=== PATIENT | male | born 1965 | race Caucasian/White ===

== ENCOUNTER 2019-12-03 07:24 | Emergency (ER) | payer MEDICAID ==
[~2019-12-03] VITALS: Ht 175.3 cm; Wt 93.2 kg
[2019-12-03 07:28] VITALS: Ht 175.3 cm; Wt 93.2 kg
[2019-12-03] MEDS ORDERED: HYDROCODON-ACE1 EAC2 PO (09:16)
[2019-12-03 09:31] VITALS: BP 148/96
== END 2019-12-03 09:31 | disposition home or self-care (01) ==
LOC: D.ER 07:24
DX: S43.109A Unspecified dislocation of unspecified acromioclavicular joint, initial encounter (principal); S50.312A Abrasion of left elbow, initial encounter; S52.121A Displaced fracture of head of right radius, initial encounter for closed fracture; V19.9XXA Pedal cyclist (driver) (passenger) injured in unspecified traffic accident, initial encounter; M25.522 Pain in left elbow; M25.532 Pain in left wrist

== ENCOUNTER → 2020-01-09 12:50 | Outpatient (CLI) | payer MEDICAID ==
[2019-12-03 07:28] VITALS: BMI 30.3
[~2020-01-09 12:50] MED LIST: HYDROCODON-ACE1 EAC2 PO
== END | disposition home or self-care (01) ==
LOC: D.RAD 08:30 → D.MRI 09:30 → D.RAD 12:50
PROVIDERS: ATTEND Orthopaedic Surgery
DX: M23.41 Loose body in knee, right knee (principal); M25.311 Other instability, right shoulder

== ENCOUNTER 2020-01-23 18:06 | Observation (INO) | payer MEDICAID ==
[~2020-01-23] VITALS: Ht 175.3 cm; Wt 95.5 kg
--- NOTE | 2020-01-23 18:28 | NUR ---
TRAUMA BAND [id number]
[2020-01-23 18:51] LABS: BASOPHILS 0.6 % (0-2); EOSINOPHILS 2.2 % (0-7); HEMATOCRIT 39.9 % (42.0-54.0); HEMOGLOBIN 12.9 g/dL (13.5-17.5); IMMATURE GRANULOCYTES 0.2 % (0-5); MCH 28.9 pg (26.0-34.0); MCHC 32.3 g/dL (31.0-37.0); MCV 89.5 fL (80.0-100.0); MEAN PLATELET VOLUME 10.2 fL (7.4-10.4); MONOCYTES 9.5 % (2-11); NEUTROPHILS 57.5 % (40-80); PLATELET COUNT 254 10x3/uL (130-400); RBC 4.46 10x6/uL (4.20-6.10); RDW 13.4 % (11.5-14.5); WBC 9.3 10x3/uL (4.8-10.8)
[2020-01-23 19:00] LABS: ANION GAP 11.8 mmol/L (8-16); CALCIUM 8.7 mg/dL (8.5-10.1); CARBON DIOXIDE 24.6 mmol/L (21.0-32.0); CREATININE - SERUM 1.2 mg/dL (0.6-1.3); POTASSIUM - SERUM 3.4 mmol/L (3.5-5.1)
[2020-01-23 19:02] LABS: INR 1.08 (0.85-1.17); PROTIME 13.9 SECONDS (11.6-15.0)
[2020-01-23 19:07] LABS: ALBUMIN 4.2 g/dL (3.4-5.0); BILIRUBIN - TOTAL 1.1 mg/dL (0.2-1.3); PROTEIN - SERUM 7.6 g/dL (6.4-8.2)
--- NOTE | 2020-01-23 20:00 | NUR ---
SURGERY AND ANESTHESIA CONSENTS COMPLETE. NO DISTRESS NOTED.
[2020-01-23 21:26] VITALS: BP 102/53
[2020-01-23 22:30] VITALS: BP 145/91; Ht 175.3 cm; Wt 95.5 kg
--- NOTE | 2020-01-24 01:35 | NUR ---
RESEVED FROM RECOVERY ALERT AND ORENTED X4 ABLE TO VOICE NEEDS AND WANTSTO STAFF. EAT AND DRINKING NO NEEDS AT THIS TIME .
[2020-01-24 04:52] LABS: HEMATOCRIT 37.4 % (42.0-54.0); HEMOGLOBIN 11.9 g/dL (13.5-17.5)
[2020-01-24 06:27] VITALS: BP 134/81
[2020-01-24 08:00] VITALS: BP 113/71
--- NOTE | 2020-01-24 09:26 | NUR ---
CALLED [facility] AND EXPLAINED PATIENT STATES HE IS LEAVING AND THAT HE ALREADY TOOK HIS IV OUT AND IS REFUSING HIS ANTIBIOTICS. NEW ORDERS RECIEVED AND CARRIED OUT.
[2020-01-24] MEDS ORDERED: HYDROCODON-ACE1 EA10 PO (09:34)
[2020-01-24] MEDS ORDERED: BACTRIM 400-801 TAB PO (09:37)
--- NOTE | 2020-01-24 09:50 | NUR ---
PATIENT RECIEVED DC INSTRUCTIONS. VERBALIZED UNDERSTANDING. NO QUESTIONS AT THIS TIME. EXPLAINED TO FIELD CARE MANAGER MEDS AT [facility] ORDERED. VERBALIZED UNDERSTANDING. ESCORTED DOWN TO ER WITH PERSONAL BELONGINGS. REFUSED TO WEAR FACE MASK.
--- NOTE | 2020-01-25 08:08 | OP ---
PATIENT NAME: JAILENE GARG MEDICAL RECORD: [id number] :65 LOCATION:[id number] ADMISSION DATE:01/23/20 SURGEON: ESHA CHEN MD DATE OF OPERATION: 01/23/2020 PREOPERATIVE DIAGNOSES: 1. Open fracture with extensor tendon laceration, left hand, index finger. 2. Laceration, left hand long finger. PROCEDURES: 1. Irrigation and debridement of open wound to include skin, subcutaneous tissue, portions of the fascia and bone. 2. Open reduction internal fixation of fracture, that is, K-wire across the DIP joint. 3. Tendon repair primary end-to-end left hand index finger. 4. Closure of open wounds, left hand long finger. 5. Closure of open wounds, left hand index finger. SURGEON: Esha Chen MD ANESTHESIA: General. INTRAOPERATIVE COMPLICATIONS: None. SUMMARY OF PATHOLOGIC FINDINGS: Consistent with preoperative diagnosis, the patient had a substantial amount of bone missing from the volar aspect of the proximal portion of his DIP joint of the middle phalanx. He also sustained a complete laceration of his index extensor mechanism with a complex laceration, most to all of the index finger. The laceration of the long finger was quite simple but also required closure. OPERATIVE SUMMARY IN DETAIL: After obtaining the appropriate preoperative orthopedic surgery consent as well as anesthetic consultation, evaluation and clearance, the patient was brought to the operating room and placed on the operating table in supine position. After adequate general laryngeal mask airway was administered, the patient's right upper extremity was prepped and draped in routine sterile fashion. At this point, appropriate timeout was taken, given the patient's unique identifiers. Copious lavage irrigation was then followed by 0.062 K-wire pinning of the DIP joint to render it stable. This fixation across the DIP joint was then followed by further irrigation followed by end-to-end reapproximation of the tendon, although mildly foreshortened it, reapproximated nicely using 2-0 FiberWire. 2-0 FiberWire was then clipped and the wound was irrigated further by closure with 4-0 Prolene in combination of [id number] and simple interrupted sutures. Having completed this, final radiographs were taken and submitted for radiologist review. Attention was then turned to the long finger. The long finger wound was copiously irrigated. The portions of the skin that were friable and nonviable were excised and this was simply closed [id number] with a 4-0 Prolene in simple interrupted fashion. Having completed this, sterile dressings were applied. The patient was awakened and taken to the recovery room in stable condition. All final needle and sponge counts were correct. TRANSINT:[id number] Voice Confirmation ID: [id number] DOCUMENT ID: [id number] 01/24/2020 Edited per clovis saenz. OPERATIVE REPORT [id number] JAILENE GARG MD, ESHA CUI at 0808 CC: [id number] DICTATION DATE: 01/23/202108 SENIOR TECHNICAL PROJECT MANAGER: 01/24/20 [id number] DIS IN 01/24/20 [facility] [address] [place] [address]
== END 2020-01-24 10:00 | disposition home or self-care (01) ==
LOC: D.ER 18:06 → D.MS 20:54 → OBSVTIME 20:56 → D.MS 01-24 10:00
PROVIDERS: Family Medicine; ADMIT Orthopaedic Surgery; ATTEND Orthopaedic Surgery
DX: S61.213A Laceration without foreign body of left middle finger without damage to nail, initial encounter (principal); S62.601B Fracture of unspecified phalanx of left index finger, initial encounter for open fracture; W29.8XXA Contact with other powered hand tools and household machinery, initial encounter